=== PATIENT | female | born 1980 | race Caucasian/White ===

== ENCOUNTER 2018-09-18 12:12 | Inpatient (IN) | payer MEDICAID ==
[2018-09-18] VITALS (16 sets, daily range): BP systolic 87–114; BP diastolic 44–84; BMI 33.7
[~2018-09-18] VITALS: Ht 175.3 cm; Wt 117.7 kg
[2018-09-18] MEDS ORDERED: ROBAXIN500 MG PO (12:28)
[2018-09-18] MEDS ORDERED: CYCLOBENZAPRINE10 MG PO (12:29)
[2018-09-18 13:19] LABS: HCG SERUM NEGATIVE (NEGATIVE)
[2018-09-18 13:40] LABS: BASOPHILS 0.1 % (0-2); EOSINOPHILS 0.3 % (0-7); HEMATOCRIT 43.2 % (36.0-48.0); HEMOGLOBIN 14.6 g/dL (12-16); LYMPHOCYTES 3.2 % (15-50); MCH 31.5 pg (26.0-34.0); MCHC 33.8 g/dL (31.0-37.0); MCV 93.1 fL (80.0-100.0); MEAN PLATELET VOLUME 11.1 fL (7.4-10.4); MONOCYTES 0.1 % (2-11); NEUTROPHILS 91.3 % (40-80); PLATELET COUNT 85 10x3/uL (130-400); RBC 4.64 10x6/uL (4.00-5.40); RDW 12.6 % (11.5-14.5); WBC 10.3 10x3/uL (4.8-10.8)
[2018-09-18 14:05] LABS: ALBUMIN 2.9 g/dL (3.4-5.0); ALKALINE PHOSPHATASE 118 U/L (46-116); ALT (SGPT) 50 U/L (10-68); BILIRUBIN - TOTAL 3.05 mg/dL (0.2-1.3); CALC OSMOLALITY 278 mosm/kg (275-300); CALCIUM 7.8 mg/dL (8.5-10.1); CARBON DIOXIDE 19.4 mmol/L (21.0-32.0); CHLORIDE - SERUM 104 mmol/L (98-107); CREATININE - SERUM 1.6 mg/dL (0.6-1.3); GLUCOSE 90 mg/dL (74-106); POTASSIUM - SERUM 3.1 mmol/L (3.5-5.1); PROTEIN - SERUM 5.7 g/dL (6.4-8.2); SODIUM 138 mmol/L (136-145); UREA NITROGEN 22 mg/dL (7-18); eGFR NON AFRICAN AMERICAN 38 mL/min (90-120)
[2018-09-18 14:08] LABS: AMYLASE - SERUM 26 U/L (25-115); LIPASE 128 U/L (73-393); TROPONIN-I < 0.017 ng/mL (0.000-0.060)
[2018-09-18 14:15] LABS: APPEARANCE SL CLDY (CLEAR); BILIRUBIN 1+ (NEGATIVE); COLOR DK YELLOW (YELLOW); GLUCOSE NEGATIVE (NEGATIVE); KETONE NEGATIVE (NEGATIVE); NITRITE NEGATIVE (NEGATIVE); PROTEIN 1+ mg/dL (NEGATIVE); SPECIFIC GRAVITY 1.015 (1.005-1.020)
[2018-09-18 14:16] LABS: BACTERIA MODERATE /hpf (NONE SEEN); EPITHELIAL CELLS 0-5 /hpf (0-5); GRANULAR CAST OCC /lpf (NONE SEEN); HYALINE CAST OCC /lpf (NONE SEEN); RED CELLS - URINE OCC /hpf (0-5)
[2018-09-18 14:20] LABS: PLATELET ESTIMATE DECREASED
[2018-09-18 14:21] LABS: ROULEAUX OCC
--- NOTE | 2018-09-18 14:30 | NUR ---
NS 2000 mL INFUSION COMPLETED AT THIS TIME.
[2018-09-18 17:11] LABS: MAGNESIUM - SERUM 1.1 mg/dL (1.8-2.4)
[2018-09-18 17:21] LABS: PHOSPHOROUS 1.5 mg/dL (2.5-4.9)
--- NOTE | 2018-09-18 18:55 | NUR ---
16 FR INDWELLING PHILLIPS CATH PLACED, APPROX 50 ML URINE OUTPUT.
--- NOTE | 2018-09-18 19:00 | NUR ---
LEVAQUIN INFUSION COMPLETED AT 171. NORMAL SALINE BOLUS 1 L COMPLETED AT 164. DOPAMINE INFUSION AT 12.5 MCG/KG/MIN CONTINUING TO INFUSE TO FLOOR AT 191. NS WITH 20mEq K CONTINUING TO INFUSE TO FLOOR AT RATE OF 125ML/H.
--- NOTE | 2018-09-18 20:56 | NUR ---
PT ON NS W/20K DRIP AT 125ML/HR AND LEVOPHED AT 10MCG/MIN.
--- NOTE | 2018-09-18 21:10 | NUR ---
Patient arrived on unit 191, connected to monitor. Dr Hankins at bedside, orders to Pre-Op patient immediately. Consents signed, pre-op meds given and patient off unit to [facility] 1924. Patient returned to 2313 @ 2110, connected to monitor and assessment completed per flowsheet. Patient AO x4, calm and cooperative. S1/S2 noted Sinus Tach on telemetry with HR 108, rythmic and regular. Breathing is even/unlabored on 2L via NC with O2 sat 96%, lung sounds clear bilateral upper and mid with diminished lower. Abdomen is round/soft with bowel sounds active x4, non-tender. Menchaca placed in surgery, orange urine noted. All pulses palpable wtih cap refill < 3 sec, skin warm/dry. Patient c/o pain/discomfort 2/10 back and flank, repositioned for comfort and will provide PRN medication when available. Denies further needs at this time, see flwstevet for details. All VSS and will continue to monitor.
--- NOTE | 2018-09-18 23:10 | NUR ---
Reassessment completed per flowsheet, patient resting in bed with eyes closed. S1/S2 noted Sinus Tach on telemetry with HR 112, rythmic and regular. Breathing is even/unlabored on 2L via NC with O2 sat 97%, lung sounds clear bilateral upper and mid with diminished lower. Menchaca secured, orange clear urine noted. All pulses palpable with cap refill < 3 sec, skin warm/dry. C/O back/flank pain 3/10, repositioned with some stated relief. Denies further needs, see flowsheet for details. All VSS and will continue to monitor.
[2018-09-19] VITALS (142 sets, daily range): BP systolic 60–146; BP diastolic 32–87; Ht 175.3 cm; Wt 117.7 kg
--- NOTE | 2018-09-19 00:10 | NUR ---
Patient c/o back/flank pain 8/10 unrelieved by repositioning, COMPOUND COATING MACHINE OFFBEARER initiated per orders. Explained use with patient returned demonstration, will continue to monitor.
--- NOTE | 2018-09-19 01:00 | NUR ---
Patient resting in bed with eyes closed, occaisional moans of pain/discomfort. Patient utilizing CENTRAL SERVICE TECHNICIAN for pain mgmt, denies further needs at this time and will continue to monitor.
--- NOTE | 2018-09-19 02:54 | NUR ---
Reassessment completed per flowsheet, no changes noted from previous assessment. S1/S2 noted Sinus Tach on telemetry with HR 114, rythmic and regular. Breathing is even/unlabored on 2L via NC with O2 sat 97%, lung sounds clear bilateral upper and mid with diminished lower. All pulses palpable with cap refill < 3 sec, skin warm/dry. Menchaca secured, clear orange urine noted. SUSTAINABLE LANDSCAPE ARCHITECT in use for pain mgmt, denies further needs at this time. See flowsheet for details, all VSS and will continue to monitor.
--- NOTE | 2018-09-19 05:00 | NUR ---
Patient sleeping in bed with eyes closed, awakens easily to voice. Denies pain or other needs at this time, all VSS and will continue to monitor.
[2018-09-19 05:17] LABS: HEMATOCRIT 37.6 % (36.0-48.0); HEMOGLOBIN 12.6 g/dL (12-16); MCH 31.5 pg (26.0-34.0); MCHC 33.5 g/dL (31.0-37.0); MEAN PLATELET VOLUME 11.7 fL (7.4-10.4); PLATELET COUNT 105 10x3/uL (130-400); RDW 13.1 % (11.5-14.5); WBC 49.1 10x3/uL (4.8-10.8)
[2018-09-19 05:29] LABS: ALBUMIN 2.2 g/dL (3.4-5.0); BILIRUBIN - TOTAL 3.53 mg/dL (0.2-1.3); CARBON DIOXIDE 20.7 mmol/L (21.0-32.0); CREATININE - SERUM 1.5 mg/dL (0.6-1.3); PROTEIN - SERUM 4.8 g/dL (6.4-8.2)
--- NOTE | 2018-09-19 05:37 | OP ---
PATIENT NAME: JESSICA OWENS MEDICAL RECORD: [id number] :78 LOCATION:[facility] D.2313 ADMISSION DATE:09/18/18 SURGEON: REJI NGO MD DATE OF OPERATION: 09/18/2018 SURGEON: Reji Ngo MD ANESTHESIA: General anesthesia by Bronson Evans CRNA. DIAGNOSES: Left ascending pyelonephritis with bacteremia and septic shock. 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 PROCEDURES: Cystoscopy, left retrograde pyelogram, left ureteral stent insertion 6-Liberian x 24 cm with string attached. FINDINGS: Persistent right nephrogram due to renal failure. Grossly hydronephrotic left renal pelvis, possibly due to a left UPJ obstruction. BLOOD LOSS: None. CLINICAL HISTORY: This is a 38-year-old female, who developed symptoms of left flank pain 1 week ago. Eventually, she developed nausea, vomiting, fevers, chills and rigors and she came to the Emergency Room today. The CT scan shows no evidence of kidney stones. She has a very massively distended left renal pelvis which the radiologist interpreted as a left parapelvic cyst. There are signs of left pyelonephritis as the CT done with IV contrast that showed less enhancement of the left kidney. There is also a lot of perinephric inflammation. Clinically, she has septic shock and lactic acidosis. She has her blood pressure maintained with a dopamine drip. She comes now to have the left kidney drained by insertion of a left ureteral stent. Also, I would like to further delineate the anatomy with the left retrograde pyelogram. Finally, if there is a cyst present then once she is more stable, I will have interventional radiology drain the cyst. She has been given Levaquin IV 750 mg in the Emergency Room. We did not give her any further antibiotics. She has a creatinine of 1.6 and lactic acid level of 3.8. DESCRIPTION OF PROCEDURE: The patient was given induction of general anesthesia. She was then placed into dorsal lithotomy position. I discussed the situation with my anesthesia colleagues. We will switch her vasopressin have agent to the Levophed instead of dopamine. Levophed is the first-line agent for acute septic shock. Also, I have asked them to insert a central line for better CVP monitoring. From a urological viewpoint, we placed her in lithotomy position and prepped and draped. The Menchaca catheter that the ER had placed was removed. Cystoscopy was done with a 21-Liberian cystoscope. A 30-degree lens was used. She has no bladder tumors. There is diffuse bladder inflammation from cystitis. She has single ureteral orifices on each side. The left ureteral orifice was seen. On fluoroscopy, we could see a persistent right renal nephrogram with a column of dye all the way down the ureter. I suspect that this is due to her acute renal failure, which is preventing efflux of contrast from the right kidney as there is minimal urine production from the right kidney right now. On the left side, I did not see any contrast at all. We entered the left ureteral orifice with an open-ended 5-Liberian ureteral catheter. Diluted contrast was injected. There seems to be kink of the ureter at the UP junction. Then, there was a massively distended hydronephrotic left renal pelvis. I advanced the open-ended ureteral catheter to get past the UPJ OPERATIVE REPORT [id number] JESSICA OWENS into the renal pelvis. This allowed the ureter to straighten out. We then inserted a Sensor wire into the renal pelvis. Once the wire was in position, the ureteral catheter was removed entirely. Over the wire, we inserted the 6-Liberian x 24 cm ureteral stent. Once this ureteral stent was in correct position, the wire was withdrawn entirely. The distal end of the stent was pushed into the bladder using a pusher. The bladder was then emptied through the cystoscope sheath and the sheath was removed. The string on the distal end of the stent is maintained. It was taped to the suprapubic area with a piece of Tegaderm. The excess length of string thereafter was cut off. Also, we inserted a 16-Liberian Menchaca catheter back into the bladder. TRANSINT:[id number] Voice Confirmation ID: [id number] DOCUMENT ID: [id number] REJI NGO MD at 0537 CC: [id number] DICTATION DATE: 09/18/182041 PAYMENT SPECIALIST: 09/18/18 2331 ADM IN [facility] [address] [place] [address]
[2018-09-19 05:38] LABS: ANION GAP 15.6 mmol/L (8-16); CALCIUM 6.4 mg/dL (8.5-10.1); POTASSIUM - SERUM 5.3 mmol/L (3.5-5.1)
[2018-09-19 05:41] LABS: BASOPHILS 1 % (0-2); LYMPHOCYTES 1 % (15-50); MONOCYTES 3 % (2-11); NEUTROPHILS 71 % (40-80)
[2018-09-19 05:42] LABS: PLATELET ESTIMATE NORMAL; PLATELET MORPHOLOGY GIANT PLTS PRESENT
--- NOTE | 2018-09-19 06:05 | NUR ---
Patient c/o L flank pain, soft to palpation/no bruising noted. Patient UOP noted to be bloody, repositioned with stated relief. Will continue to monitor.
--- NOTE | 2018-09-19 08:00 | NUR ---
DR HUBER WANG
--- NOTE | 2018-09-19 08:18 | NUR ---
DR JIN PAGED R/T DR NGO WITH NO ANSWER
--- NOTE | 2018-09-19 08:35 | NUR ---
DR JIN NO ANSWER
--- NOTE | 2018-09-19 08:50 | NUR ---
DR NGO PAGED WITH NO ANSWER
--- NOTE | 2018-09-19 09:21 | NUR ---
DR JIN AT BEDSIDE. GIVEN UPDATE. NEW ORDERS RECIEVED.
--- NOTE | 2018-09-19 10:20 | NUR ---
DR DUNN AT BEDSIDE NEW ORDERS RECEIVED.
--- NOTE | 2018-09-19 10:58 | NUR ---
DR DUNN AT BEDSIDE. UPDATE GIVEN. NEW ORDERS RECIEVED.
--- NOTE | 2018-09-19 11:15 | NUR ---
REASSESSMENT COMPLETE PER FLOW SHEET VSS NO NEW CHANGES WILL CONTINUE TO MONITOR
--- NOTE | 2018-09-19 13:15 | NUR ---
PRN ZOFRAN ADM FOR NAUSEA
--- NOTE | 2018-09-19 13:20 | NUR ---
DR MONA WANG
--- NOTE | 2018-09-19 13:40 | NUR ---
DR DUNN PAGED AGAIN. CALLED BACK NEW ORDERS RECEIVED
--- NOTE | 2018-09-19 13:50 | NUR ---
DR YUAN PAGED GIVEN UPDATE. STATED WOULD BE HERE IN FIVE MINUTES
[2018-09-19 14:45] LABS: BASOPHILS 0 % (0-2); EOSINOPHILS 0 % (0-7); HEMOGLOBIN 7.8 g/dL (12-16); IMMATURE GRANULOCYTES 8.8 % (0-5); LYMPHOCYTES 2.3 % (15-50); MCH 31.5 pg (26.0-34.0); MCHC 32.5 g/dL (31.0-37.0); MCV 96.8 fL (80.0-100.0); MONOCYTES 4.7 % (2-11); NEUTROPHILS 84.2 % (40-80); PLATELET COUNT 101 10x3/uL (130-400); RBC 2.48 10x6/uL (4.00-5.40); RDW 13.4 % (11.5-14.5)
[2018-09-19 14:48] LABS: WBC 51.8 10x3/uL (4.8-10.8)
[2018-09-19 15:00] LABS: BILIRUBIN - TOTAL 3.3 mg/dL (0.2-1.3); CARBON DIOXIDE 15.6 mmol/L (21.0-32.0); PROTEIN - SERUM 3.9 g/dL (6.4-8.2)
[2018-09-19 15:01] LABS: ALBUMIN 1.6 g/dL (3.4-5.0); ANION GAP 20.7 mmol/L (8-16); CREATININE - SERUM 2.7 mg/dL (0.6-1.3)
[2018-09-19 15:02] LABS: POTASSIUM - SERUM 6.3 mmol/L (3.5-5.1)
[2018-09-19 15:03] LABS: CALCIUM 5.6 mg/dL (8.5-10.1)
--- NOTE | 2018-09-19 15:45 | NUR ---
PT TO CT AT THIS TIME. AWAITING RESULTS.
--- NOTE | 2018-09-19 16:00 | NUR ---
DR YUAN PAGED GIVEN UDPATE. CALLING RADIOLOGY
--- NOTE | 2018-09-19 16:05 | NUR ---
DR DUNN CALLED GIVEN UPDATE. T ORDERS RECEIVED. WILL ADM.
--- NOTE | 2018-09-19 16:29 | NUR ---
3RD U PRBC ADM
--- NOTE | 2018-09-19 16:31 | NUR ---
1ST UNIT PLATELETS ADM
--- NOTE | 2018-09-19 16:36 | NUR ---
2ND U PRBC WILL ADM
--- NOTE | 2018-09-19 17:01 | NUR ---
1ST UNIT FFP ADM
--- NOTE | 2018-09-19 17:15 | MORECARE ---
CASE MANAGEMENT DISCHARGE SUMMARY PATIENT: JESISCA OWENS UNIT: [id number] ADM DATE: 09/18/18 AGE: 38 : [birth year] SEX: F ROOM/BED: D.2313 AUTHOR: MIGUEL ELENA PHYSICIAN: REFERRING PHYSICIAN: ADEBAYO JIN DO DATE OF SERVICE: 09/19/18 Discharge Plan Patient Name: JESSICA OWENS [facility] [facility] 1980 Planned Disposition: Anticipated Discharge Date: Discharge Date: Expected LOS: Initial Reviewer: [email or web address] Initial Review Date: 09/18/2018 Generated: 09/19/18 6:14 pm Comments DCP- Discharge Planning Updated by [email or web address]: Lana Andujar on 09/19/18 4:[address] Patient is very critical at this time awaiting surgery. No immediate family here. CM will try at a later date to get D/C plan. Patient Name: JESSICA OWENS Page [phone] at 1715 All edits/amendments must be made on the electronic document DICTATION DATE: 09/19/181713 REFINERY OPERATOR: SUNIL 09/19/181713 RPT#: [id number] DC DATE: STATUS: ADM IN [facility] [address] [place] [address] END OF REPORT
--- NOTE | 2018-09-19 17:20 | NUR ---
4TH U PRBC 2ND U PLATELETS ADM
--- NOTE | 2018-09-19 17:30 | NUR ---
DR MARLEEN DUNN AT BEDSIDE GIVEN UDPATE. FAMILY AT BEDSIDE GIVEN UDPATE. CONSENTS OBTAINED
--- NOTE | 2018-09-19 18:06 | NUR ---
UNABLE TO OBTAIN I/O OR SILK TOP HAT BODY MAKER FLOW SHEET I/O. PT TO OR EMERGENTLY
--- NOTE | 2018-09-19 18:57 | NUR ---
OR CALLED STATED PT WOULD BE IN RECOVERY IN 10 MINUTES
--- NOTE | 2018-09-19 19:23 | NUR ---
PT ARRIVED TO UNIT WITH OR STAFF. LATHE SCALPER OPERATOR GIVING BEDSIDE REPORT. PT IS INTUBATED AND SEDATED AT THIS TIME. PERRLA, 3 MM, BRISK REACTION TO LIGHT. NGT R POLY FLORES PER DR. WEST'S VERBAL ORDER AT BEDSIDE. ETT SIZE 7.0, 20 CM MIDLINE. VENT SETTINGS: A/C RATE OF 14, TIDAL VOLUME 500, FIO2 @ 100%, PEEP 5.0, O2 SAT 98%. R IJ CVL INFUSING LEVOPHED @ 11 MCG/MIN (20.6 ML/HR), VASOPRESSIN 0.04 UN/MIN (6 ML/HR), LR @ KVO, DILAUDID CASE HARDENER @ 0.2 MG Q10 MIN WITH MAX 4 MG/4H, BUTTON WITHIN REACH. S1S2 AUDIBLE, HR 97 NSR SHOWING ON MONITOR. CLEAR LUNG SOUNDS HEARD BILAT THROUGHOUT ALL LOBES. ABD ROUND, MIDLINE ABD INCISION DRESSING CDI. LLQ EUGENE DRAIN, COMPRESSED, BLOODY DRAINAGE NOTED. PHILLIPS CATH INTACT DRAINING CONCENTRATED URINE. L RADIAL A-LINE ZEROED, BP 123/62, CVP READING 4. VERBAL ORDER VIA ANESTHESIA TO HANG PROPOFOL IN 1-2 HRS BASED OFF OF FELIPE'S SEDATION SCORE. VERBAL ORDER FROM DR. WEST TO KEEP CVP > 6 WITH LR FLUID BOLUS. WILL CONT TO MONITOR CLOSELY. ALL NEEDS MET.
--- NOTE | 2018-09-19 20:40 | NUR ---
DR. WEST AT [facility]. VASOPRESSIN MAXED AT 0.04 UN/MIN (6ML/HR). DR. WEST STATED TO TURN VASOPRESSIN OFF AND TITRATE UP ON LEVO IF NEEDED. VASO TURNED OFF PER ORDER.
--- NOTE | 2018-09-19 20:43 | NUR ---
RT DECREASED FIO2 TO 60%.
--- NOTE | 2018-09-19 20:50 | NUR ---
UPDATED DR. DUNN ON PT'S CONDITION. NEW ORDERS RECIEVED.
--- NOTE | 2018-09-19 21:00 | NUR ---
DR. NGO AT BEDSIDE SPEAKING WITH FAMILY ABOUT PT CONDITION. ALL QUESTIONS ANSWERED. WILL PROVIDE EDUCATIONAL AND EMOTIONAL SUPPORT TO FAMILY.
--- NOTE | 2018-09-19 21:20 | NUR ---
PT'S CHILDREN AT BEDSIDE. ALL QUESTIONS ANSWERED. NO FURTHER NEEDS AT THIS TIME.
[2018-09-19 22:46] LABS: HEMATOCRIT 22.7 % (36.0-48.0); HEMOGLOBIN 8.1 g/dL (12-16)
--- NOTE | 2018-09-19 23:18 | OP ---
PATIENT NAME: JESSICA OWENS MEDICAL RECORD: [id number] :78 LOCATION:[facility] D.2313 ADMISSION DATE:09/18/18 SURGEON: JOHN NGO MD DATE OF OPERATION: 09/19/2018 CO-SURGEON: John Ngo MD and Dakota Velazco MD (JJ) PREOPERATIVE DIAGNOSIS: Stage V left renal rupture, level 4 hemorrhagic shock. PROCEDURE: Exploratory laparotomy, left nephrectomy. FINDINGS: Ruptured atrophic left kidney with a large hematoma within Gerota's fascia and retroperitoneal hemorrhage. SPECIMENS: 1. Left kidney. 2. Left ureteral stent. ESTIMATED BLOOD LOSS: Minimal from the surgery, but the patient already had large amounts of blood in the hematoma. CLINICAL HISTORY: This is a 38-year-old female, who has had 1-week history of left flank pain. She eventually developed fevers, chills and rigors and yesterday she came to the Emergency Room. She eventually developed septic shock with hypotension. She was placed on IV dopamine. A CT scan showed an abnormal looking left kidney with what looks like a large left parapelvic cyst or possible UPJ obstruction and signs of left pyelonephritis. Since she was apparently septic and bacteremic, I brought her to the operating room last night to insert a left ureteral stent. She had a left retrograde pyelogram at the same time, which showed a UPJ type obstruction with a grossly hydronephrotic left kidney. Today, she deteriorated even worse. Her hemoglobin has dropped precipitously, hemoglobin of 5.8 and she was transfused 2 units of blood. She had a CT angiogram of the abdomen and pelvis and this showed a large left hematoma within Gerota's fascia. Interventional radiology felt they could not embolize this kidney. Therefore, I received rather frantic calls from the ICU attending physicians regarding a left nephrectomy. On reviewing the situation, it is apparent to me that she will from bleeding if we do not do anything. Even if we do perform a left nephrectomy to stop the bleeding, there is still a risk that she could from the surgery or in spite of the surgery. However, surgery offers only chance of potentially rescuing her. In discussing this with the patient and her family, they decided to proceed with a left nephrectomy. I have asked Dr. Velazco to help me with this procedure as I will need his experience with the vascular surgery. She is already on multiple IV antibiotics in the ICU. No further antibiotics were given to her. DESCRIPTION OF PROCEDURE: The patient was given induction of general anesthesia in supine position. She was then prepped and draped. A midline incision extending from the xiphoid process, all the way down to the symphysis pubis was made when we entered through the midline into the peritoneal space. A Bookwalter retractor was placed to hold the incision open. We discovered a large quantity of hemorrhage around the left upper quadrant. There was also blood in the pelvis. This was suctioned out. We started mobilization of the left lateral peritoneum along the line of Toldt. The colon could then be mobilized medially. The ligaments between the colon and spleen were also taken down using Bovie. This allowed us to see the anterior surface of the kidney. OPERATIVE REPORT [id number] JESSICA OWENS We continued to mobilize the colon medially until we had the entire anterior surface of the kidney exposed. We swept around posterior to the kidney and cleaned out a large hematoma here. Sponges were placed here for hemostasis. We then swept around the inferior pole of the kidney until we identified the ureter with my stents in it. A small opening was made in the ureter. The stent was entirely removed through this opening. Clips were applied proximal and distal to this opening and the ureter was divided at this site. Going medially, I identified the plane of the renal pedicle. An endovascular STEVAN 45 with a vascular load was used to cut through the renal pedicle. We continued to use the endovascular STEVAN 45 loads with vascular rubén to go through the adrenal gland at the superior pole of the kidney. Finally, the plane between the spleen and the kidney was entered through using Endo-STEVAN stapler. Finally, the entire kidney was free and it was removed. Grossly, it seems to have ruptured and bled profusely. No active bleeding is seen. We removed all the clots manually and removed all our sponges that we have placed in previously. At this point, Dr. Velazco ran the bowel. There was no injury to the bowel. However, there was a rent in the mesentery where there had been a hemorrhage in the mesentery near the proximal small bowel. This rent in the mesentery was closed to prevent internal herniation. A 3-0 Vicryl running sutures were used to close the hole in the mesentery. There was no injury to the bowel at all. An NG tube was inserted by anesthesia and we confirmed its location by palpating the gastric fundus. Then, we closed using running looped #1 PDS. The skin was closed with rubén. A Bronson drain was placed into the left upper quadrant at the renal fossa for security. This was tied down with a 2-0 nylon drain suture. The patient will be transferred back to the intensive care unit. TRANSINT:[id number] Voice Confirmation ID: [id number] DOCUMENT ID: [id number] JOHN NGO MD at 2318 CC: [id number] DICTATION DATE: 09/19/181923 LOCK ASSEMBLER: 09/19/182149 ADM IN [place] [id number] [place] [id number]
--- NOTE | 2018-09-19 23:42 | NUR ---
HR 150'S BP DECREASING. PAGING DR. WEST.
--- NOTE | 2018-09-19 23:48 | NUR ---
NEW ORDERS RECIEVED PER DR. WEST.
--- NOTE | 2018-09-19 23:55 | NUR ---
RT DECREASED O2 TO 40%, PT TOLERATING WELL.
[2018-09-20] VITALS (88 sets, daily range): BP systolic 79–147; BP diastolic 38–90
--- NOTE | 2018-09-20 00:03 | NUR ---
1 UN PRBC INFUSING.
--- NOTE | 2018-09-20 00:03 | NUR ---
FIRST UN PRBC INITIATING.
--- NOTE | 2018-09-20 00:32 | NUR ---
2ND UN PRBC INFUSING.
--- NOTE | 2018-09-20 01:00 | NUR ---
PT'S SBP IMPROVING WITH BLOOD PRODUCTS. WILL CONT TO TITRATE GTTS PER ORDERS.
[2018-09-20 02:16] LABS: HEMOGLOBIN 8.3 g/dL (12-16)
--- NOTE | 2018-09-20 03:00 | NUR ---
REASSESSMENT COMPLETE PER FLOWSHEET. PT IS ABLE TO LOCALIZE PAIN. CLEAR SECTIONS NOTED IN ETT WHEN SUCTIONING. SEE FLOWSHEET FOR FURTHER DETIALS. ALL NEEDS MET. WILL CONT CLOSE OBSERVATION AT BEDSIDE.
--- NOTE | 2018-09-20 04:00 | NUR ---
ACCOUNTING FOR LAST SHIFT'S CREATIVE SERVICES WRITER DOSE. UNABLE TO CLEAR PUMP DUE TO EMERGENT SX. SEE CREATIVE SERVICES WRITER FLOWSHEET FOR FURTHER DETIALS.
--- NOTE | 2018-09-20 04:08 | NUR ---
3RD UN PRBC INFUSING.
--- NOTE | 2018-09-20 04:10 | NUR ---
1 UN FFP INFUSING.
[2018-09-20 04:38] LABS: HEMATOCRIT 20.9 % (36.0-48.0); MCHC 35.4 g/dL (31.0-37.0); MCV 84.6 fL (80.0-100.0); RBC 2.47 10x6/uL (4.00-5.40); RDW 14.8 % (11.5-14.5); WBC 25.8 10x3/uL (4.8-10.8)
[2018-09-20 04:39] LABS: BASOPHILS 0 % (0-2); EOSINOPHILS 0 % (0-7); HEMOGLOBIN 7.4 g/dL (12-16); IMMATURE GRANULOCYTES 2.2 % (0-5); LYMPHOCYTES 3.8 % (15-50); MEAN PLATELET VOLUME 11.6 fL (7.4-10.4); PLATELET COUNT 54 10x3/uL (130-400)
[2018-09-20 04:48] LABS: ALBUMIN 1.2 g/dL (3.4-5.0); BILIRUBIN - TOTAL 8.07 mg/dL (0.2-1.3)
[2018-09-20 04:57] LABS: ANION GAP 11.4 mmol/L (8-16); CALCIUM 5.6 mg/dL (8.5-10.1); CARBON DIOXIDE 26.9 mmol/L (21.0-32.0); CREATININE - SERUM 1.8 mg/dL (0.6-1.3); POTASSIUM - SERUM 4.3 mmol/L (3.5-5.1)
--- NOTE | 2018-09-20 05:17 | NUR ---
EUGENE DRAIN HAS LARGE CLOT IN CHAMBER. ONLY ABLE TO REMOVE 20-30 ML BLOOD EACH TIME. WILL LET SURGICAL TEAM KNOW.
[2018-09-20 05:31] LABS: PLATELET ESTIMATE DECREASED
--- NOTE | 2018-09-20 07:00 | NUR ---
REPORT RECEIVED. ASSESSMENT COMPLETE PER FLOW SHEET. REFER FOR FINDINDGS. VSS WILL CONTINUE TO MONITOR NURSE AT [facility]
--- NOTE | 2018-09-20 07:08 | NUR ---
CALLED PHARMACY 3 TIMES TO GET PERIDEX FOR PT
--- NOTE | 2018-09-20 07:10 | NUR ---
CALLED PHARMACY 3 TIMES TO GET PERIDEX NO ANSWER
[2018-09-20 07:52] LABS: HEMATOCRIT 20.2 % (36.0-48.0)
--- NOTE | 2018-09-20 08:03 | NUR ---
DR YUAN AT BEDSIDE. GIVEN UDPATE. NO NEW ORDERS
--- NOTE | 2018-09-20 08:15 | NUR ---
LAB CALLED GIVEN UPDATE ON SEVERETY OF H&H RESULTS BEING RESULTED STATED UNDERSTANDING WOULD REVIEW NOW.
[2018-09-20 08:18] LABS: HEMOGLOBIN 7.2 g/dL (12-16)
--- NOTE | 2018-09-20 09:02 | NUR ---
DR JIN AT BEDSIDE GIVEN UPDATE.
--- NOTE | 2018-09-20 09:20 | NUR ---
NAPOLEON LEE WITH CRISTIAN AT BEDSIDE GIVEN UDPATE.
[2018-09-20 09:36] LABS: INR 1.51 (0.85-1.17); PROTIME 17.6 SECONDS (11.6-15.0)
--- NOTE | 2018-09-20 09:41 | NUR ---
DR WEST AT BEDSIDE GIVEN UDPATE. NEW ORDERS RECEIVED.
--- NOTE | 2018-09-20 11:00 | NUR ---
REASSESSMENT COMPLETE PER FLOW SHEET. VSS. NO NEW CHANGES PT RESTING COMFORTABLY WILL CONTINUE TO MONITOR
--- NOTE | 2018-09-20 11:05 | OP ---
PATIENT NAME: JESSICA OWENS MEDICAL RECORD: [id number] :78 LOCATION:[facility] D.2313 ADMISSION DATE:09/18/18 SURGEON: COLT WEST MD DATE OF OPERATION: 09/19/2018 PREOPERATIVE DIAGNOSES: Grade V left kidney injury with class IV hemorrhagic shock and active bleeding, pyelonephritis, sepsis. POSTOPERATIVE DIAGNOSES: Grade V left kidney injury with class IV hemorrhagic shock and active bleeding, pyelonephritis, sepsis. PROCEDURE PERFORMED: Laparotomy, left nephrectomy, control of intra-abdominal hemorrhage, washout of intra-abdominal hematoma, mobilization of splenic flexure. SURGEON: Colt West MD CO-SURGEON: Reji Hankins MD ESTIMATED BLOOD LOSS: 3 liters. SPECIMENS: Left kidney and ureter. Case was clean. ANESTHESIA: General. COMPLICATIONS: None. OPERATIVE COURSE: The patient was taken emergently from the intensive care unit to the operating room table. General anesthesia was given. Timeout was taken to confirm the correct patient and procedure. The abdomen was prepped and draped in typical sterile fashion. Ioban dressing was placed. A generous midline incision was made from the xiphoid process to just below the umbilicus with a 10-blade scalpel. Dissection continued to the subcutaneous tissue with electrocautery. The anterior fascia was identified. The fascia was incised with electrocautery. The peritoneum was grasped with Argenis clamps and incised with Metzenbaum scissors. Remaining portion of the incision and peritoneum were opened with electrocautery under direct vision. The Bookwalter retractors were placed into the abdomen, exposing the abdominal cavity. All 4 quadrants of the abdomen were packed. The packs were removed in counterclockwise fashion from the left lower quadrant to the right lower quadrant, right upper quadrant, and then finally to the left upper quadrant. The descending colon and sigmoid colon were dissected off the pelvic sidewall. The white line of Toldt was taken down using electrocautery. Careful dissection was made to identify the plane between the mesentery and the retroperitoneum. Once this is done, the mesentery of the descending colon was mobilized medially. We mobilized the splenic flexure. The transverse colon was also mobilized using Harmonic scalpel dissection of the greater omentum the greater omentum into the lesser sac. Once we had full mobilization of the transverse colon, splenic flexure, and descending colon, we were able to identify the ureter by palpation of the ureteral sent. The ureter was transected. Multiple clips were placed on the distal ureter. The avascular attachments of the spleen were mobilized. Two-three liters of intra-abdominal hematoma were removed from the left retroperitoneal space. The vascular pedicle was identified using 3 firings of the linear cutting STEVAN OPERATIVE REPORT [id number] JESSICA OWENS stapler with white loads. The vascular pedicle to the left kidney was transected. The left kidney was passed off this field and sent for permanent pathology. The abdomen was then irrigated with 5 liters of warm normal saline. Adequate hemostasis was obtained. A 19-Luxembourgish Bronson drain was placed into the left lower quadrant and placed into the right retroperitoneal space. At this time, instrument, lap counts were performed. All lap pads were identified. At this time, the abdomen was evaluated. There was no evidence of active bleeding. Dr. Hankins was present and helped to perform all portions of the operation including the nephrectomy. The midline abdominal incision was closed with #1 looped PDS. Skin was closed with rubén. EUGENE drain was secured with 2-0 nylon suture. At the end of the case, all needle and instrument counts were correct. No complications occurred. The patient was transferred back to the intensive care unit in critical condition. TRANSINT:[id number] Voice Confirmation ID: [id number] DOCUMENT ID: [id number] COLT WEST MD at 1105 CC: [id number] DICTATION DATE: 09/20/18917 SAP PI ARCHITECT: 09/20/18 1027 [place] [address]
--- NOTE | 2018-09-20 13:12 | NUR ---
DR NGO AT BEDSIDE GIVEN UDPATE.
[2018-09-20 14:03] LABS: BASOPHILS 0.1 % (0-2); EOSINOPHILS 0 % (0-7); HEMATOCRIT 23.4 % (36.0-48.0); HEMOGLOBIN 8.3 g/dL (12-16); IMMATURE GRANULOCYTES 0.6 % (0-5); MCH 30.1 pg (26.0-34.0); MCHC 35.5 g/dL (31.0-37.0); MCV 84.8 fL (80.0-100.0); MEAN PLATELET VOLUME 9.7 fL (7.4-10.4); MONOCYTES 5.6 % (2-11); NEUTROPHILS 89.7 % (40-80); RBC 2.76 10x6/uL (4.00-5.40); RDW 14.9 % (11.5-14.5)
[2018-09-20 14:19] LABS: APTT 26.5 SECONDS (22.8-39.4); INR 1.24 (0.85-1.17); PROTIME 15.1 SECONDS (11.6-15.0)
[2018-09-20 14:21] LABS: ANION GAP 10.9 mmol/L (8-16); BILIRUBIN - TOTAL 4.92 mg/dL (0.2-1.3); CARBON DIOXIDE 30.8 mmol/L (21.0-32.0); CREATININE - SERUM 1.5 mg/dL (0.6-1.3); POTASSIUM - SERUM 3.7 mmol/L (3.5-5.1)
[2018-09-20 14:22] LABS: PROTEIN - SERUM 4.4 g/dL (6.4-8.2)
[2018-09-20 14:23] LABS: CALCIUM 6.5 mg/dL (8.5-10.1)
--- NOTE | 2018-09-20 14:25 | NUR ---
DR YUAN CALLED GIVEN UDPATE REGUARDING CRITICAL CA+ LVL
[2018-09-20 14:46] LABS: WBC 17.5 10x3/uL (4.8-10.8)
[2018-09-20 14:47] LABS: PLATELET COUNT 66 10x3/uL (130-400)
--- NOTE | 2018-09-20 14:55 | NUR ---
LABS REVIEWED. DR WEST PAGED TO EULALIO RESULTS
--- NOTE | 2018-09-20 15:00 | NUR ---
REASSESSMENT COMPLETE PER FLOW SHEET. VSS. NO NEW CHANGES WILL CONTINUE TO MONITOR
--- NOTE | 2018-09-20 15:15 | NUR ---
DR WEST AT BEDSIDE GIVEN UPDATE NEW ORDERS RECEIVED
--- NOTE | 2018-09-20 16:18 | NUR ---
DR DUNN AT BEDSIDE GIVEN UDPATE
--- NOTE | 2018-09-20 17:05 | NUR ---
DR JIN AT BEDSIDE GIVEN UPDATE.
--- NOTE | 2018-09-20 17:57 | NUR ---
STAT H&H DRAWN SENT TO LAB. AWAITING RESULTS
[2018-09-20 18:06] LABS: HEMATOCRIT 24.3 % (36.0-48.0); HEMOGLOBIN 8.6 g/dL (12-16)
--- NOTE | 2018-09-20 19:00 | NUR ---
SHIFT ASSESSMENT COMPLETE. PT IS SEDATED ON THE VENT. PERRLA, 3 MM, BRISK REACTION TO LIGHT, YELLOW SCLERA EDEMA NOTED. NGT R NARE, POLY. ETT SIZE 7.0, MEASURING 20 CM AT THE LIP. VENT SETTINGS: A/C RATE OF 18, TIDAL VOLUME 500, FIO2 40%, PEEP 5.0, O2 SAT 98%. R IJ CVL INFUSING BICARB @ 150 ML/HR, PROPOFOL @ 45 MCG/KG/MIN (30.5 ML/HR), LR @ KVO, FENTANYL @ 25 MCG/HR (0.5 ML/HR). MIDLINE ABD INCISION DRESSING CDI, EUGENE LLQ DRAINING BLOODY DRAINAGE. ABD ROUND AND SOFT, HYPOACTIVE BS X4. PHILLIPS CATH DRAINING OTONIEL URINE. L RADIAL A-LINE ZEROED, 125/78. CVP ZEROED, 10. GENERALIZED EDEMA NOTED. RADIAL AND PEDAL PULSES PALP. HEEL PROTECTORS ON. SCDS ON AND FUNCTIONING. B/L WRIST RESTRAINTS REMOVED AND SKIN ASSESSED, WNL, PLACED RESTRAINTS BACK ON PT. ALL NEEDS MET. NO FURTHER FINDINGS AT THIS TIME. VSS. WILL CONT CLOSE MONITORING IN ICU.
--- NOTE | 2018-09-20 21:00 | NUR ---
NO FAMILY DURING VISITATION. REPOSITIONED FOR COMFORT. ORAL CARE PROVIDED. VSS. NO CHANGES IN PT CONDITION. WILL CONT TO MONITOR CLOSELY.
--- NOTE | 2018-09-20 22:10 | NUR ---
LEFT A-LINE IS SHOWING BAD WAVE FORM. FLUSHED, REPOSITIONED, STILL SHOWING BAD WAVE FROM. CHARGE NURSE AT BEDSIDE. UNABLE TO GET A-LINE TO SHOW PROPER WAVE FORM. NIBP PLACED ON PT AND READING 132/89. WILL CONT CLOSE MONITORING.
--- NOTE | 2018-09-20 22:20 | NUR ---
PROPOFOL TUBING CHANGED, DATED, LABELED, SWAB CAPPED.
--- NOTE | 2018-09-20 23:00 | NUR ---
REASSESSMENT COMPLETE. NO CHANGES FROM PREVIOUS ASSESSMENT, SEE FLOWSHEET FOR FURTHER DETIALS. VSS. ORAL CARE PROVIDED. REPOSITIONED FOR COMFORT. WILL CONT WITH POC.
[2018-09-20 23:56] LABS: HEMATOCRIT 24.7 % (36.0-48.0); HEMOGLOBIN 9.2 g/dL (12-16)
--- NOTE | 2018-09-20 23:58 | NUR ---
H&H REVIEWED, NO BLOOD NEEDED. WILL CONT TO MONITOR.
[2018-09-21] VITALS (23 sets, daily range): BP systolic 89–136; BP diastolic 61–96
--- NOTE | 2018-09-21 01:00 | NUR ---
ORAL CARE PROVIDED. VSS. REPOSITIONED FOR COMFORT. NO CHANGES IN PT CONDITION. WILL CONT WITH POC.
--- NOTE | 2018-09-21 01:55 | NUR ---
PT'S HR DROPPED TO 55, SINUS SRIDHAR SHOWING ON MONITOR. NIBP 132/86. DECREASED PROPOFOL PER TITRATION ORDERS. WILL CONT TO MONITOR. SEE IV FLOWSHEET FOR FURTHER DETAILS.
--- NOTE | 2018-09-21 03:00 | NUR ---
REASSESSMENT COMPLETE. PT'S HR IS LOW 60'S. CONT TO TITRATE PROPOFOL NEEDED/ORDERED. CRACKLES HEARD BILAT THROUGHOUT ALL LOBES. NO FURTHER FINDINGS AT THIS TIME. WILL CONT WITH POC.
--- NOTE | 2018-09-21 05:00 | NUR ---
ALL IV TUBING LINES CHANGED, SWAB CAPPED AND LABELED. REPOSITIONED FOR COMFORT. VSS. ORAL CARE PROVIDED. WILL CONT WITH POC.
[2018-09-21 05:42] LABS: HEMATOCRIT 25.7 % (36.0-48.0); HEMOGLOBIN 8.9 g/dL (12-16); MCH 29.5 pg (26.0-34.0); MCHC 34.6 g/dL (31.0-37.0); MCV 85.1 fL (80.0-100.0); MEAN PLATELET VOLUME 11.6 fL (7.4-10.4); PLATELET COUNT 61 10x3/uL (130-400); RBC 3.02 10x6/uL (4.00-5.40); RDW 15.3 % (11.5-14.5); WBC 25.7 10x3/uL (4.8-10.8)
[2018-09-21 05:44] LABS: ANION GAP 10.3 mmol/L (8-16); BILIRUBIN - TOTAL 4.56 mg/dL (0.2-1.3); CARBON DIOXIDE 33.1 mmol/L (21.0-32.0); CREATININE - SERUM 1.3 mg/dL (0.6-1.3); MAGNESIUM - SERUM 1.3 mg/dL (1.8-2.4); PHOSPHOROUS 2.2 mg/dL (2.5-4.9); POTASSIUM - SERUM 3.4 mmol/L (3.5-5.1); PROTEIN - SERUM 4.8 g/dL (6.4-8.2)
--- NOTE | 2018-09-21 06:09 | NUR ---
RT AT BEDSIDE PROVIDING ORAL CARE. NO FURTHER NEEDS AT THIS TIME.
[2018-09-21 06:17] LABS: INR 1.09 (0.85-1.17); PROTIME 13.6 SECONDS (11.6-15.0)
--- NOTE | 2018-09-21 07:15 | NUR ---
REPORT RECEIVED. ASSESSMENT COMPLETE PER FLOW SHEET. VSS. NO NEW CHANGES PT RESTING COMFORTABLY WILL CONTINUE TO MONITOR
[2018-09-21 08:29] LABS: LYMPHOCYTES 5 % (15-50); MONOCYTES 15 % (2-11); NEUTROPHILS 74 % (40-80); PLATELET ESTIMATE DECREASED
[2018-09-21 08:30] LABS: SMUDGE CELLS OCC
--- NOTE | 2018-09-21 08:30 | NUR ---
DR WEST AT BEDSIDE NEW ORDERS RECIVED WILL ADM
--- NOTE | 2018-09-21 08:45 | NUR ---
DR YUAN AT BEDSIDE NEW ORDERS RECEIVED
--- NOTE | 2018-09-21 09:15 | NUR ---
PROPOFOL OFF AT THIS TIME PER ORDER. PT ON CPAP TRIAL WILL CONTINUE TO MONITOR NURSE AT BEDSIDE
--- NOTE | 2018-09-21 09:15 | NUR ---
DR JIN AT BEDSIDE GIVEN UPDATE
--- NOTE | 2018-09-21 09:25 | NUR ---
Nutrition follow-up: Pt intubated, sedated post emergent left nephrectomy CPAP trials today with possible extubation today or tomorrow NPO Labs reviewed Wt: 278# If unable to extubate, recommend starting Pulmocare @ 25 ml/hr with increase to goal rate of 60 ml/hr. RDN following.
--- NOTE | 2018-09-21 09:30 | NUR ---
PRISCILLA LEE WITH DR DUNN AT BEDSIDE UPDATE GIVEN NEW ORDERS RECEIVED
--- NOTE | 2018-09-21 10:45 | NUR ---
DR YUAN PAGED GIVENUPDATE PT ANXIOUS AGGITATED ATTEMPT TO SELF EXTUBATED T ORDER TO EXTUBATE AT THIS TIME TO BIPAP. RESPIRATORY NOTIFIED
--- NOTE | 2018-09-21 11:00 | NUR ---
FENTANYL DPP TURNED OFF AND D.C'D AT THIS TIME PER ORDER
--- NOTE | 2018-09-21 11:05 | NUR ---
PT EXTUBATED WITHOUT DIFFICULTY AT THIS TIME. WILL CONTINUE TO MONITOR
--- NOTE | 2018-09-21 11:30 | NUR ---
DR BRETT WASHINGTOND. AWAITING CALL BACK
--- NOTE | 2018-09-21 11:30 | NUR ---
REASSESSMENT COMPLETE PER FLOW SHEET.V SS. REFER FOR FINDINGS. PT RSTING COMFORTABLY WILL CONTINUE TO MONITOR
--- NOTE | 2018-09-21 11:54 | NUR ---
FENTANYL DPP TURNED OFF AND D.C'D PER ORDER
--- NOTE | 2018-09-21 12:10 | NUR ---
FAMILY AT BEDSIDE GIVEN UPDATE
--- NOTE | 2018-09-21 14:25 | NUR ---
PT SLEEPING COMFORTABLY VSS NO NEW CHANGES WILL CONTNIUE TO MONITOR
--- NOTE | 2018-09-21 14:30 | NUR ---
DR DUNN AT BEDSIDE UPDATE GIVEN NO NEW ORDERS
--- NOTE | 2018-09-21 15:15 | NUR ---
REASSESSMENT COMPLETE PER FLOW SHEET. VSS. NO NEW CHANGES WILL CONTINUE TOMONITOR
[2018-09-21 15:29] LABS: CALCIUM 7.1 mg/dL (8.5-10.1); CARBON DIOXIDE 36.3 mmol/L (21.0-32.0); CREATININE - SERUM 1.2 mg/dL (0.6-1.3); POTASSIUM - SERUM 3.3 mmol/L (3.5-5.1)
--- NOTE | 2018-09-21 16:10 | NUR ---
PT UP TO SIDE OF BED COUGH DEEP BREATHE ADM. NEEDS MET
--- NOTE | 2018-09-21 17:11 | NUR ---
DR WEST AT BEDSIDE GIVEN UPDATE
--- NOTE | 2018-09-21 19:00 | NUR ---
REPORT RECEIVED, CARE ASSUMED. PT IS LAYING IN BED WITH EYES OPEN AT THIS TIME. PT DENIES NEEDS CURRENTLY. INITIAL ASSESSMENT COMPLETED, SEE FLOWSHEET FOR DETAILS. HELPED PT REPOSITION IN BED FOR COMFORT. NO SIGNS OF ACUTE DISTRESS. WILL CONTINUE TO MONITOR.
--- NOTE | 2018-09-21 21:00 | NUR ---
PT IS RESTING IN BED WITH EYES CLOSED AT THIS TIME. PT DENIES NEEDS. HELPED PT TO REPOSITION IN BED. NO SIGNS OF ACUTE DISTRESS NOTED AT THIS TIME. WILL CONTINUE TO MONITOR.
--- NOTE | 2018-09-21 22:39 | NUR ---
PT PUT ON BIPAP 16/ 40% AT THIS TIME
--- NOTE | 2018-09-21 23:00 | NUR ---
REASSESSMENT COMPLETED, SEE FLOWSHEET FOR DETAILS. PT IS LAYING IN BED AT THIS TIME. PT UNABLE TO KEEP BIPAP ON DUE TO NG TUBE AND AIR CONSTANTLY LEAKING FROM AROUND IT. PLACED PT ON 2LNC AT THIS TIME TO MAINTAIN O2 SAT WHILE SLEEPING. CONTINOUS PLUSE OX MONITORING IN PLACE. NO SIGNS OF ACUTE DISTRESS NOTED AT THIS TIME. WILL CONTINUE TO MONITOR CLOSELY.
[2018-09-22] VITALS (23 sets, daily range): BP systolic 109–146; BP diastolic 72–98
--- NOTE | 2018-09-22 01:00 | NUR ---
PT IS LAYING IN BED WITH EYES CLOSED AT THIS TIME. PT DENIES NEEDS AT THIS TIME. HELPED PT REPOSITION IN BED. NO SIGNS OF ACUTE DISTRESS NOTED AT THIS TIME. WILL CONTINUE TO MONITOR.
--- NOTE | 2018-09-22 03:00 | NUR ---
REASSESSMENT COMPLETED, SEE FLOWSHEET FOR DETAILS. PT IS LAYING IN BED WITH EYES CLOSED AT THIS TIME. NO SIGNS OF ACUTE DISTRESS. WILL CONTINUE TO MONITOR.
[2018-09-22 04:21] LABS: BASOPHILS 0 % (0-2); EOSINOPHILS 0.1 % (0-7); HEMATOCRIT 26.9 % (36.0-48.0); HEMOGLOBIN 9.1 g/dL (12-16); IMMATURE GRANULOCYTES 1.4 % (0-5); LYMPHOCYTES 8.5 % (15-50); MCH 29.7 pg (26.0-34.0); MCHC 33.8 g/dL (31.0-37.0); MCV 87.9 fL (80.0-100.0); MEAN PLATELET VOLUME 11.5 fL (7.4-10.4); MONOCYTES 5.6 % (2-11); NEUTROPHILS 84.4 % (40-80); PLATELET COUNT 58 10x3/uL (130-400); RBC 3.06 10x6/uL (4.00-5.40); RDW 15.1 % (11.5-14.5); WBC 24.1 10x3/uL (4.8-10.8)
[2018-09-22 04:34] LABS: ANION GAP 6.9 mmol/L (8-16); BILIRUBIN - TOTAL 2.82 mg/dL (0.2-1.3); CALCIUM 7.1 mg/dL (8.5-10.1); CARBON DIOXIDE 34.7 mmol/L (21.0-32.0); CREATININE - SERUM 1.2 mg/dL (0.6-1.3); POTASSIUM - SERUM 3.6 mmol/L (3.5-5.1)
--- NOTE | 2018-09-22 05:00 | NUR ---
PT IS LAYING IN BED WITH EYES CLOSED AT THIS TIME. NO SIGNS OF ACUTE DISTRESS. WILL CONTINUE TO MONITOR.
--- NOTE | 2018-09-22 07:15 | NUR ---
REPORT RECEIVED. ASSESSMENT COMPLETE PER FLOW SHEET. VSS. NO NEW CHANGES PT RESTING COMFORTABLY WILL CONTINUE TO MONITOR
[2018-09-22 08:27] LABS: PHOSPHOROUS 2.9 mg/dL (2.5-4.9)
--- NOTE | 2018-09-22 09:08 | NUR ---
Nutrition follow-up: Pt extubated NPO until BM NGT -> LIWS Labs reviewed RDN following.
--- NOTE | 2018-09-22 09:10 | NUR ---
ASSISTED OOB TO CHAIR
--- NOTE | 2018-09-22 09:40 | EC ---
PATIENT:JESSICA OWENS DATE OF SERVICE: 09/18/18 SEX: F MEDICAL RECORD: [id number] DATE OF : [birth year] LOCATION:[facility] D.230 AGE OF PATIENT: 38 ADMISSION DATE: 09/18/18 REFERRING PHYSICIAN: INTERPRETING PHYSICIAN: TRAVON DIEGO MD ECHOCARDIOGRAM REPORT ECHO CHARGES 4 ECHO COMPLETE Date: 09/19/18 CLINICAL DIAGNOSIS: HYPOTENSION/SEPTIC SHOCK ECHOCARDIOGRAPHIC MEASUREMENTS (adult normal given) AC root (d.<3.7cm) 2.7 cm LV Septum d (<1.2 cm> 0.9 cm Valve Excursion 1.1 cm LV Septum (systole) 1.1 cm Left Atria (s.<4.0cm> cm LVPW d(<1.2cm) 1.3 cm RV (d.<2.3cm) 2.2 cm LVPW (sytole) 1.7 cm LV diastole(<5.6CM) 2.6 cm MV E-F(>70mm/sec) cm LV systole 1.7 cm LVOT Diameter 1.6 cm MV exc.(>10mm) 1.6 cm Est.ejection fraction (50-75%) % DOPPLER: LVIT cm/sec A 31.0 cm/sec E 77.0 cm/sec LA cm/sec RVSP 43 mmHg LVOT 190 cm/sec AOP1/2T m/s Asc. Ao 232 cm/sec RVOT 88 cm/sec RA cm/sec PA 115 cm/sec AV Gradient Peak 21.52mmHg AV Mean 12.45mmHg AV Area 1.7 cm MV Gradient Peak 3.29 mmHg MV Mean 0.84 mmHg MV Area cm COMMENTS: Chief Client Officer: Allan FERNANDEZ Worm Sorter: 1 Dr. Diego TAPE# PACS Pericardial Effusion N DATE OF SERVICE: 09/19/2018 FINDINGS: 1. Left ventricular chamber size is within normal limits. Left ventricular systolic function is normal. Overall ejection fraction is estimated at 60%. 2. Left atrium, right atrium, and right ventricular chamber sizes are within normal limit. 3. Valvular structures have normal structure and motion. 4. Doppler interrogation reveals no significant valvular insufficiency or stenosis. ECHOCARDIOGRAM REPORT [id number] JESSICA OWENS 5. No evidence of pericardial effusion or left ventricular thrombus. TRANSINT:[id number] Voice Confirmation ID: [id number] DOCUMENT ID: [id number] TRAVON DIEGO MD at 0940 CC: [id number] DICTATION DATE: 09/19/18 1631 WHITE SHOE RAGGER: 09/19/18 1726 ADM IN [facility] [address] [id number]
--- NOTE | 2018-09-22 10:10 | NUR ---
DR WEST AT BEDSIDE
--- NOTE | 2018-09-22 11:00 | NUR ---
REASSESSMENT COMPLETE PER FLOW SHEET. VSS. NO NEW CHANGES PT RESTING COMFORTABLY WILL CONTINUE TO MONITOR
--- NOTE | 2018-09-22 13:00 | NUR ---
DR YUAN AT BEDSIDE
--- NOTE | 2018-09-22 14:09 | NUR ---
DR NGO AT BEDSIDE
--- NOTE | 2018-09-22 15:00 | NUR ---
REASSESSMENT COMPLETE PER FLOW SHEET VSS NO NEW CHANGES PT RESTING COMFORTABLY WILL CONTINUE TO MONTIOR
--- NOTE | 2018-09-22 16:09 | NUR ---
COMPLETE BB LINEN CHANGE ADM. CHG ADM ASSISTED BACK TO BED WITHOUT DIFFICULTY
[2018-09-22 17:22] LABS: ANION GAP 8.3 mmol/L (8-16); CALCIUM 7.4 mg/dL (8.5-10.1); CARBON DIOXIDE 29.2 mmol/L (21.0-32.0); POTASSIUM - SERUM 3.5 mmol/L (3.5-5.1)
--- NOTE | 2018-09-22 17:40 | NUR ---
DR DUNN AT BEDSIDE. GIVEN UDPATE
--- NOTE | 2018-09-22 19:20 | NUR ---
REPORT RECEIVED INITIAL ASSESSMENT COMPLETED. PT UP TO BSC READY TO GET BACK TO BED. PT TRANSFERS WITH MINIMAL ASSIST DOES NEED HELP WITH MOVING UP IN BED ASSISTED WITH CLEANING AFTER USING COMMODE. ORIENTED X4. C/O SEVERE PAIN AFTER GETTING TO BED PT SMASH FIXER MORPHINE HAD BEEN D/C TODAY WAS GIVEN TRAMADOL COUPLE HOURS AGO DID NOT RELIEVE PAIN. CM READING SB RATE OF 52 MDS AWARE OF LOW HEART RATE. CM ALARMS ON AND AUDIBLE. RESP EVEN NONLABORED BREATH SOUNDS WITH FAINT CRACKLES DIMINISHED BASILAR. O2 SAT 97% ON ROOM AIR AT THIS TIME. ABD ROUND BS HYPO PT STATES SHE HAS BEEN PASSING GAS. SKIN W/D PPP GENERALIZED EDEMA. EUGENE DRAIN TO ABD WITH SEROSANG DRAINAGE. STAPLE LINE CLEAN INTACT NO REDNESS OR DRAINAGE NOTED. BED LOW CALL LIGHT IN REACH. INFORMED PT WILL PAGE ABOUT PAIN MANAGEMENT PRN MEDS. SHE VERBALIZES UNDERSTANDING.
--- NOTE | 2018-09-22 19:33 | NUR ---
KATHLEEN SINGERN ANSWERED INFORMED OF PT PAIN NOT RELIEVED WITH EARLIER PO TRAMADOL ORDER AND THAT AFTER PT BEING UP AND CONTINUING TO GET UP TO BSC C/O MODERATE TO SEVERE PAIN GIVEN PRN MORPHINE IVP.
--- NOTE | 2018-09-22 19:48 | NUR ---
MEDICATED WITH MORPHINE 2MG SIVP PER PRN ORDER
--- NOTE | 2018-09-22 19:55 | MORECARE ---
CASE MANAGEMENT DISCHARGE SUMMARY PATIENT: JESSICA OWENS UNIT: [id number] ADM DATE: 09/18/18 AGE: 38 : [birth year] SEX: F ROOM/BED: D.2303 AUTHOR: MIGUEL ELENA PHYSICIAN: REFERRING PHYSICIAN: ADEBAYO JIN DO DATE OF SERVICE: 09/22/18 Discharge Plan Patient Name: JESSICA OWENS Facility: [facility]:[place] : 1980 Planned Disposition: Home Anticipated Discharge Date: Discharge Date: Expected LOS: Initial Reviewer: [email or web address] Initial Review Date: 09/22/2018 Generated: 09/22/18 8:55 pm DCP- Discharge Planning Updated by [email or web address]: Lana Andujar on 09/19/18 4:[address] Patient is very critical at this time awaiting surgery. No immediate family here. CM will try at a later date to get D/C plan. DCPIA - Discharge Planning Initial Assessment Updated by [email or web address]: Lana Andujar on 09/22/18 7:54 pm * Is the patient Alert and Oriented? Yes * How many steps to enter\exit or inside your home? * PCP [facility] * [facility] * Preadmission Environment Home with Family * ADLs Independent * Equipment None * List name and contact numbers for known caregivers / representatives who currently or will assist patient after discharge: NETO PENA [facility] [phone] * Verbal permission to speak to the caregivers and representatives has been obtained from the patient. N/A * Community resources currently utilized None * Additional services required to return to the preadmission environment? No * Can the patient safely return to the preadmission environment? Yes * Has this patient been hospitalized within the prior 30 days at any hospital? No Last DP export: 09/19/18 4:15 p Patient Name: JESSICA OWENS Page [id number] at 1955 All edits/amendments must be made on the electronic document DICTATION DATE: 09/22/181954 FLEXOGRAPHIC PRESS OPERATOR: SUNIL 09/22/181954 RPT#: [id number] DC DATE: STATUS: ADM IN [facility] [address] [place] [address] END OF REPORT
--- NOTE | 2018-09-22 20:04 | MORECARE ---
CASE MANAGEMENT DISCHARGE SUMMARY PATIENT: JESSICA OWENS UNIT: [id number] ADM DATE: 09/18/18 AGE: 38 : [birth year] SEX: F ROOM/BED: D.2303 AUTHOR: KASSY,DOC PHYSICIAN: REFERRING PHYSICIAN: ADEBAYO JIN DO DATE OF SERVICE: 09/22/18 Discharge Plan Patient Name: JESSICA OWENS Facility: [facility]:[place] : 1980 Planned Disposition: Home Anticipated Discharge Date: Discharge Date: Expected LOS: Initial Reviewer: [email or web address] Initial Review Date: 09/22/2018 Generated: 09/22/18 9:03 pm Comments DCP- Discharge Planning Updated by [email or web address]: Lana Andujar on 09/22/18 6:[address] Patient Name: JESSICA OWENS Admission Status: ER Accout number: [id number] Admission Date: 09-18-2018 : 1980 Admission Diagnosis:GRAM-NEGATIVE SEPSIS, UNSPECIFIED Attending: ADEBAYO JIN Current LOS: 4 Anticipated DC Date: Planned Disposition: Home Primary [place]: [place] [employer] Discharge Planning Comments: CM met with patient at bedside after explaining CM role and obtaining verbal consent. Patient lives at home with her children and plans to return there upon discharge. Patient feels this would be a safe discharge. CM discussed availability / needs of home health and medical equipment. Patient denies any discharge needs at this time. Patient states she will have family drive her home upon discharge. CM will continue to follow and assist as needed with discharge planning / needs. Document Specialist: Lana Andujar DCP- Discharge Planning Updated by [email or web address]: Lana Andujar on 09/19/18 4:[address] Patient is very critical at this time awaiting surgery. No immediate family here. CM will try at a later date to get D/C plan. DCPIA - Discharge Planning Initial Assessment Updated by [email or web address]: Lana Andujar on 09/22/18 7:54 pm * Is the patient Alert and Oriented? Yes * How many steps to enter\exit or inside your home? * PCP [facility] * [facility] * Preadmission Environment Home with Family * ADLs Independent * Equipment None * List name and contact numbers for known caregivers / representatives who currently or will assist patient after discharge: NETO PENA - MOTHER - [phone] * Verbal permission to speak to the caregivers and representatives has been obtained from the patient. N/A * Community resources currently utilized None * Additional services required to return to the preadmission environment? No * Can the patient safely return to the preadmission environment? Yes * Has this patient been hospitalized within the prior 30 days at any hospital? No Last DP export: 09/22/18 6:55 p Patient Name: JESSICA OWENS Page [id number] at 2005 All edits/amendments must be made on the electronic document DICTATION DATE: 09/22/182002 SHOT GRINDER OPERATOR: SUNIL 09/22/182002 RPT#: [id number] DC DATE: STATUS: ADM IN [facility] [address] [place] [address] END OF REPORT
--- NOTE | 2018-09-22 21:00 | NUR ---
ANSWERED PTS CALL LIGHT SHE IS REQUESTING UP TO BSC MINIMAL ASSIST TO BSC URINATES WITHOUT DIFFICULTY ATTEMPT TO COMB HAIR UNSUCCESSFUL DUE TO TANGLES. CONDITIONER AND SHOWER CAP APPLIED WILL ATTEMPT AGAIN LATER.
--- NOTE | 2018-09-22 23:00 | NUR ---
REASSESSMENT MADE NO CHANGES PT RESTED WELL AFTER EARLIER DOSE OF MORPHINE. EUGENE DRAIN EMPTIED COUPLE TIMES AND COMPRESSED DRESSING D/I. CALL LIGHT IN REACH
[2018-09-23] VITALS (11 sets, daily range): BP systolic 108–147; BP diastolic 80–93
--- NOTE | 2018-09-23 00:49 | NUR ---
ANSWERED PTS CALL LIGHT REQUESTING TO GET UP TO BSC ASSISTED MINIMALLY UP TO BSC ABLE TO URINATE DARK YELLOW URINE ASSISTED BACK TO BED MEDICATED WITH MORPHINE FOR PAIN 10 ON 1-10 SCALE.
--- NOTE | 2018-09-23 02:00 | NUR ---
PT RESTING QUIETLY WITH EYES CLOSED VSS CPOC WILL CONTINUE TO MONITOR
--- NOTE | 2018-09-23 03:00 | NUR ---
REASSESSMENT COMPLETE NO CHANGES VSS AT THIS TIME. REPOSITIONED FOR COMFORT. CPOC. CALL LIGHT IN REACH
[2018-09-23 06:52] LABS: HEMATOCRIT 29.4 % (36.0-48.0); HEMOGLOBIN 9.8 g/dL (12-16); MCH 29.4 pg (26.0-34.0); MCHC 33.3 g/dL (31.0-37.0); MCV 88.3 fL (80.0-100.0); MEAN PLATELET VOLUME 12.2 fL (7.4-10.4); RBC 3.33 10x6/uL (4.00-5.40); RDW 14.7 % (11.5-14.5); WBC 18.2 10x3/uL (4.8-10.8)
[2018-09-23 06:55] LABS: PLATELET COUNT 89 10x3/uL (130-400)
[2018-09-23 07:11] LABS: ALBUMIN 2.1 g/dL (3.4-5.0); ANION GAP 12.1 mmol/L (8-16); BILIRUBIN - TOTAL 2.75 mg/dL (0.2-1.3); CALCIUM 7.5 mg/dL (8.5-10.1); CARBON DIOXIDE 24.4 mmol/L (21.0-32.0); CREATININE - SERUM 0.9 mg/dL (0.6-1.3); POTASSIUM - SERUM 3.5 mmol/L (3.5-5.1); PROTEIN - SERUM 5.3 g/dL (6.4-8.2)
[2018-09-23 07:35] LABS: EOSINOPHILS 1 % (0-7); LYMPHOCYTES 9 % (15-50); MONOCYTES 12 % (2-11); NEUTROPHILS 67 % (40-80); PLATELET ESTIMATE DECREASED
--- NOTE | 2018-09-23 08:04 | NUR ---
PER DR WEST, [facility] LIQUID DIET, KEEP IJ CVL IN FOR ONE MORE DAY, TRANSFER TO FLOOR.
--- NOTE | 2018-09-23 08:27 | NUR ---
UP IN BED AWAKE AT THIS TIME. NO ACUTE DISTRESS NOTED. ASSISTED TO TOILET VIA MINIMAL ASSIST. CALL LIGHT IN REACH. WILL CONTINUE PLAN OF CARE.
--- NOTE | 2018-09-23 09:45 | NUR ---
CONTINENT VOID NOTED AT THIS TIME. ASSISTED TO TOILET VIA MINIMAL ASSIST. NO ACUTE DISTRESS NOTED. PT UP IN BED AWAKE. VSS. WILL CONTINUE PLAN OF CARE.
--- NOTE | 2018-09-23 10:13 | NUR ---
CHG BATH OFFERED TO PT, SHE STATED SHE WANTED TO WAIT UNTIL LATER.
--- NOTE | 2018-09-23 10:40 | NUR ---
ATTEMPTED TO FLUSH RT AC PERIPHERAL IV, NOTED NO LONGER PATENT, IV DC, CATHETER TIP INTACT. NO ACUTE DISTRESS NOTED. WILL CONTINUE PLAN OF CARE.
--- NOTE | 2018-09-23 12:04 | NUR ---
UP IN BED EATING LUNCH AT THIS TIME. PT ON CLR LIQUID DIET PER SURGEON. NO ACUTE DISTRESS NOTED. VSS. WILL CONTINUE PLAN OF CARE.
--- NOTE | 2018-09-23 14:04 | NUR ---
LYING IN BED RESTING AT THIS TIME. NO ACUTE DISTRESS NOTED. RESPIRATIONS STEADY AND UNLABORED. PT AWAKENS WHEN SPOKEN TO. VSS. WILL CONTINUE PLAN OF CARE.
--- NOTE | 2018-09-23 15:01 | NUR ---
CHG BATH GIVEN AT THIS TIME.
--- NOTE | 2018-09-23 15:10 | NUR ---
NOTED PT TO GO TO ROOM 2229, REPORT CALLED TO RECIEVING NURSE. WILL TRANSFER PT SHORTLY.
--- NOTE | 2018-09-23 15:55 | NUR ---
TRANSFERRED TO ROOM 2229 AT THIS TIME VIA WHEELCHAIR, TRANSFERRED WITH ALL PERSONAL ITEMS WITH NURSING STAFF. PT STATES SHE WILL NOTIFY HER FAMILY OF HER TRANSFER. ALSO BEFORE TRANSFER CVL TO RT IJ DRESSING CHANGED PER HOSPITAL PROTOCOL, OLD DRESSING NO LONGER ADHERED TO SKIN THEREFORE NEEDED TO BE CHANGED. NO ACUTE DISTRESS NOTED. VSS. NO FURTHER ACTIONS.
--- NOTE | 2018-09-23 19:00 | NUR ---
REPORT RECEIVED AND CARE OF PT ASSUMED. PT LYING IN LOW DING'S POSITION WATCHING TV. RIGHT IJ CENTRAL LINE PATENT WITH D5NS W/ 20 KCL INFUSING AT 75 ML / HR. MIDLINE INCISION WELL APPROXIMATED WITH AIDEN. WILL MONITOR FOR NEEDS.
--- NOTE | 2018-09-23 19:45 | NUR ---
ASSISTED PT UP TO USE RESTROOM. WILL CONTINUE TO MONITOR FOR NEEDS.
--- NOTE | 2018-09-23 21:45 | NUR ---
HS MEDICATIONS GIVEN TO INCLUDE TRAMADOL PO FOR PAIN. WILL CONTINUE TO MONITOR FOR NEEDS.
[2018-09-24] VITALS: BP 150/76
[2018-09-24 04:00] VITALS: BP 148/71
[2018-09-24 08:49] VITALS: BP 120/82
--- NOTE | 2018-09-24 09:00 | NUR ---
ALERT AND ORIENTEDX3. AIDEN INTACT TO MIDLINE OF ABDOMEN. BS HYPOACTIVE X4 WITH FLATULANCE. EUGENE DRAIN WITH BLOODY DRAINAGE NOTED. MS GIVEN PRN. SCD INTACT. IV TO RT. IJ WITH IVF INFUSING AT PRESCRIBED RATE. ENCOURAGED TO USE CALL LIGHT FOR ASSIST.
[2018-09-24 09:01] LABS: BASOPHILS 0.2 % (0-2); EOSINOPHILS 0.7 % (0-7); HEMATOCRIT 30.9 % (36.0-48.0); HEMOGLOBIN 10.7 g/dL (12-16); LYMPHOCYTES 9.1 % (15-50); MCH 29.8 pg (26.0-34.0); MCHC 34.6 g/dL (31.0-37.0); MONOCYTES 10.6 % (2-11); NEUTROPHILS 58.4 % (40-80); RBC 3.59 10x6/uL (4.00-5.40); RDW 14.2 % (11.5-14.5); WBC 14.9 10x3/uL (4.8-10.8)
[2018-09-24 09:04] LABS: MCV 86.1 fL (80.0-100.0); PLATELET COUNT 122 10x3/uL (130-400)
[2018-09-24 09:10] LABS: CALC OSMOLALITY 271 mosm/kg (275-300); CALCIUM 7.6 mg/dL (8.5-10.1); CARBON DIOXIDE 22.7 mmol/L (21.0-32.0); CHLORIDE - SERUM 104 mmol/L (98-107); CREATININE - SERUM 0.7 mg/dL (0.6-1.3); GLUCOSE 116 mg/dL (74-106); POTASSIUM - SERUM 3.5 mmol/L (3.5-5.1); SODIUM 135 mmol/L (136-145); UREA NITROGEN 15 mg/dL (7-18); eGFR NON AFRICAN AMERICAN > 90 mL/min (90-120)
[2018-09-24 12:39] VITALS: BP 142/76
[2018-09-24 17:55] VITALS: BP 131/90
--- NOTE | 2018-09-24 19:00 | NUR ---
REPORT RECEIVED AND CARE OF PT ASSUMED. PT LYING IN SUPINE POSITION WITH EYES CLOSED. RIGHT IJ PATENT WITH D5NR W/ 20 KCL INFUSING AT 75 ML / HR. EUGENE DRAIN WELL COMPRESSED WITH BLOODY DRAINAGE IN BULB. WILL MONITOR FOR NEEDS.
[2018-09-24 20:00] VITALS: BP 143/71
--- NOTE | 2018-09-24 20:40 | NUR ---
HS MEDICATIONS GIVEN TO INCLUDE TRAMADOL PO FOR PAIN. WILL MONITOR FOR NEEDS.
--- NOTE | 2018-09-24 21:30 | NUR ---
ASSISTED PT UP TO RESTROOM. EMPTIED EUGENE DRAIN AND DOCUMENTED OUTPUT. WILL CONTINUE TO MONTITOR FOR NEEDS.
--- NOTE | 2018-09-24 21:33 | NUR ---
GAVE MORPHINE 2 MG IVP FOR C/O PAIN. WILL CONTINUE TO MONITOR FOR NEEDS.
--- NOTE | 2018-09-24 21:40 | NUR ---
CHANGED BEDPAD AND GOWN.
[2018-09-25] VITALS: BP 118/53
[2018-09-25 04:00] VITALS: BP 120/60
[2018-09-25 05:52] LABS: CALC OSMOLALITY 272 mosm/kg (275-300); CALCIUM 7.4 mg/dL (8.5-10.1); CARBON DIOXIDE 22.4 mmol/L (21.0-32.0); CHLORIDE - SERUM 104 mmol/L (98-107); CREATININE - SERUM 0.7 mg/dL (0.6-1.3); GLUCOSE 113 mg/dL (74-106); POTASSIUM - SERUM 3.8 mmol/L (3.5-5.1); SODIUM 136 mmol/L (136-145); UREA NITROGEN 13 mg/dL (7-18); eGFR NON AFRICAN AMERICAN > 90 mL/min (90-120)
[2018-09-25 06:19] LABS: HEMATOCRIT 28.6 % (36.0-48.0); HEMOGLOBIN 9.9 g/dL (12-16); MCH 29.7 pg (26.0-34.0); MCHC 34.6 g/dL (31.0-37.0); MCV 85.9 fL (80.0-100.0); MEAN PLATELET VOLUME 10.7 fL (7.4-10.4); RBC 3.33 10x6/uL (4.00-5.40); RDW 14.3 % (11.5-14.5); WBC 13.3 10x3/uL (4.8-10.8)
[2018-09-25 06:23] LABS: PLATELET COUNT 154 10x3/uL (130-400)
[2018-09-25 08:16] VITALS: BP 130/76
[2018-09-25 08:37] LABS: BASOPHILS 1 % (0-2); EOSINOPHILS 3 % (0-7); LYMPHOCYTES 11 % (15-50); MONOCYTES 14 % (2-11); NEUTROPHILS 55 % (40-80)
[2018-09-25 08:38] LABS: ANISOCYTOSIS 1+; PLATELET ESTIMATE NORMAL; POLYCHROMASIA OCC; SMUDGE CELLS OCC
[2018-09-25 09:31] LABS: PATH REVIEW PERIPHERAL SMEAR REVIEWED
[2018-09-25 12:18] VITALS: BP 122/62
--- NOTE | 2018-09-25 15:35 | NUR ---
CVL TO RIGHT NECK DISCONTINUED PER MD ORDERS. PRESSURE HELD NO BLEEDING OR DRAINAIGE NOTED. STERILE DRESSING APPLIED TO AREA. EUGENE DRAIN REMOVED FROM LEFT LOWER QUAD. DRESSING APPLIED. SCANT AMOUNT OF SEROSANGOUENOUS DRAINAGE NOTED.
[2018-09-25 15:53] VITALS: BP 131/71
[2018-09-25 20:00] VITALS: BP 117/61
[2018-09-26 06:33] VITALS: BP 116/70
[2018-09-26 06:50] LABS: BASOPHILS 0.2 % (0-2); HEMATOCRIT 29.2 % (36.0-48.0); IMMATURE GRANULOCYTES 13.7 % (0-5); LYMPHOCYTES 11.2 % (15-50); MCH 29.6 pg (26.0-34.0); MCHC 34.2 g/dL (31.0-37.0); MCV 86.4 fL (80.0-100.0); MEAN PLATELET VOLUME 10.9 fL (7.4-10.4); MONOCYTES 9.9 % (2-11); RBC 3.38 10x6/uL (4.00-5.40); RDW 14.7 % (11.5-14.5)
[2018-09-26 07:02] LABS: CALC OSMOLALITY 269 mosm/kg (275-300); CALCIUM 7.8 mg/dL (8.5-10.1); CARBON DIOXIDE 23.3 mmol/L (21.0-32.0); CHLORIDE - SERUM 103 mmol/L (98-107); CREATININE - SERUM 0.8 mg/dL (0.6-1.3); GLUCOSE 117 mg/dL (74-106); POTASSIUM - SERUM 3.8 mmol/L (3.5-5.1); SODIUM 135 mmol/L (136-145); UREA NITROGEN 11 mg/dL (7-18); eGFR NON AFRICAN AMERICAN 85 mL/min (90-120)
[2018-09-26 07:06] LABS: PLATELET COUNT 187 10x3/uL (130-400)
--- NOTE | 2018-09-26 07:35 | NUR ---
PT RESTING IN BED, AWAKE AND ALERT. NO ACUTE DISTRESS NOTED AT THIS TIME. REPORTS PAIN 8/10 AT THIS TIME. PAIN MEDICATION TO BE ADMINISTERED PER MD ORDERS. MIDLINE INCISION WITH AIDEN INTACT. NO REDNESS SWELLING OR DRAINAGE. OLD EUGENE DRAIN SITE TO LEFT UPPER QUAD WITH DRESSING INTACT. SCANT AMOUNT OF SEROSANGEOUNOUS DRAINAGE NOTED. DENIES FURTHER NEEDS AT THIS TIME. CL WITHIN REACH. ENCOURAGED TO CALL WITH NEEDS. CONTINUE POC
[2018-09-26] MEDS ORDERED: LEVOFLOXACIN500 MG PO (08:09)
[2018-09-26] MEDS ORDERED: OXYCODONE HCL5 M1 PO (08:09)
[2018-09-26 08:14] VITALS: BP 116/77
[2018-09-26] MEDS ORDERED: VALTREX500 MG PO (10:39)
[2018-09-26] MEDS ORDERED: GABAPENTIN100 MG PO (10:39)
[2018-09-26] MEDS ORDERED: MIRALAX17 GM PO (10:39)
[2018-09-26 11:46] VITALS: BP 114/69
--- NOTE | 2018-09-26 12:40 | MORECARE ---
CASE MANAGEMENT DISCHARGE SUMMARY PATIENT: JESSICA OWENS UNIT: [id number] ADM DATE: 09/18/18 AGE: 38 : 78 SEX: F ROOM/BED: D.2229 AUTHOR: KASSY,DOC PHYSICIAN: REFERRING PHYSICIAN: ADEBAYO JIN DO DATE OF SERVICE: 09/26/18 Discharge Plan Patient Name: JESSICA OWENS Facility: [facility]:[place] : 1980 Planned Disposition: Home Anticipated Discharge Date: 09/26/18 Discharge Date: Expected LOS: 8 Initial Reviewer: [email or web address] Initial Review Date: 09/22/2018 Generated: 09/26/18 1:40 pm DCP- Discharge Planning Updated by [email or web address]: Lana Andujar on 09/22/18 6:[address] Patient Name: JESSIAC OWENS Admission Status: ER Accout number: [id number] Admission Date: 09-18-2018 : 1980 Admission Diagnosis:GRAM-NEGATIVE SEPSIS, UNSPECIFIED Attending: ADEBAYO JIN Current LOS: 4 Anticipated DC Date: Planned Disposition: Home Primary [place]: [place] [employer] [place] Discharge Planning Comments: CM met with patient at bedside after explaining CM role and obtaining verbal consent. Patient lives at home with her children and plans to return there upon discharge. Patient feels this would be a safe discharge. CM discussed availability / needs of home health and medical equipment. Patient denies any discharge needs at this time. Patient states she will have family drive her home upon discharge. CM will continue to follow and assist as needed with discharge planning / needs. Air Traffic Control Supervisor: Lana Andujar DCP- Discharge Planning Updated by [id number]: Lana Andujra on 09/19/18 4:[address] Patient is very critical at this time awaiting surgery. No immediate family here. CM will try at a later date to get D/C plan. DCPIA - Discharge Planning Initial Assessment Updated by [email or web address]: Lana Andujar on 09/22/18 7:54 pm * Is the patient Alert and Oriented? Yes * How many steps to enter\exit or inside your home? * PCP [facility] * [facility] * Preadmission Environment Home with Family * ADLs Independent * Equipment None * List name and contact numbers for known caregivers / representatives who currently or will assist patient after discharge: NETO PENA - MOTHER - [phone] * Verbal permission to speak to the caregivers and representatives has been obtained from the patient. N/A * Community resources currently utilized None * Additional services required to return to the preadmission environment? No * Can the patient safely return to the preadmission environment? Yes * Has this patient been hospitalized within the prior 30 days at any hospital? No Last DP export: 09/22/18 7:04 p Patient Name: JESSICA OWENS Page [id number] at 1240 All edits/amendments must be made on the electronic document DICTATION DATE: 09/26/18 1239 VP STRATEGIC PLANNING: SUNIL 09/26/18 1239 RPT#: [id number] DC DATE: STATUS: ADM IN [facility] [address] [place] [address] END OF REPORT
--- NOTE | 2018-09-26 12:51 | MORECARE ---
CASE MANAGEMENT DISCHARGE SUMMARY PATIENT: JESSICA OWENS UNIT: [id number] ADM DATE: 09/18/18 AGE: 38 : 78 SEX: F ROOM/BED: D.2229 AUTHOR: KASSY,MIGUEL PHYSICIAN: REFERRING PHYSICIAN: ADEBAYO JIN DO DATE OF SERVICE: 09/26/18 Discharge Plan Patient Name: JESSICA OWENS Facility: [facility]:[place] : 1980 Planned Disposition: Home Anticipated Discharge Date: 09/26/18 Discharge Date: Expected LOS: 8 Initial Reviewer: [email or web address] Initial Review Date: 09/22/2018 Generated: 09/26/18 1:50 pm Comments DCP- Discharge Planning Updated by [email or web address]: Sita Garza on 09/26/18 11:[address] PATIENT WILL BE AT [address] [place] [address]. CORRECTED ADDRESS WAS ON FAXED REFERRAL SHEET. DCP- Discharge Planning Updated by [email or web address]: Sita Garza on 09/26/18 11:[address] CONSENT SIGNED AT 1230 09/26/18 FOR [facility]. DCP- Discharge Planning Updated by [email or web address]: Sita Garza on 09/26/18 11:[address] CM REVISITED W/ THE PATIENT. DISCUSSED HOME HEALTH PATIENT HAS D/C WITH HOME HEALTH ORDERS. SHE WILL ACCEPTED. DISCUSSED PROVIDERS. THE PATIENT IS FAMILIAR WITH [facility] THEREFORE CONSENT SIGNED FOR [facility]. TC TO [facility]. THEY ARE CONTRACTED W/ PATIENT'S INSURER. THE PATIENT WILL BE SEEN ON TUESDAY. CONSENT OBTAINED. COPY TO THE PATIENT AND COPY TO THE HARD COVER CHART. FAXED REFERRAL. PATIENT'S DAUGHTER IS AT THE BEDSIDE. SHE WILL PROVIDE TRANSPORTATION. DCP- Discharge Planning Updated by [email or web address]: Lana Andujar on 09/22/18 6:[address] Patient Name: JESSICA OWENS Admission Status: ER Accout number: [id number] Admission Date: 09-18-2018 : 1980 Admission Diagnosis:GRAM-NEGATIVE SEPSIS, UNSPECIFIED Attending: ADEBAYO JIN Current LOS: 4 Anticipated DC Date: Planned Disposition: Home Primary Insurance: [place] [employer] [place] Discharge Planning Comments: CM met with patient at bedside after explaining CM role and obtaining verbal consent. Patient lives at home with her children and plans to return there upon discharge. Patient feels this would be a safe discharge. CM discussed availability / needs of home health and medical equipment. Patient denies any discharge needs at this time. Patient states she will have family drive her home upon discharge. CM will continue to follow and assist as needed with discharge planning / needs. Glove Wrapper: Lana Andujar DCP- Discharge Planning Updated by [email or web address]: Lana Andujar on 09/19/18 4:[address] Patient is very critical at this time awaiting surgery. No immediate family here. CM will try at a later date to get D/C plan. DCPIA - Discharge Planning Initial Assessment Updated by [email or web address]: Lana Andujar on 09/22/18 7:54 pm * Is the patient Alert and Oriented? Yes * How many steps to enter\exit or inside your home? * PCP [facility] * [facility] * Preadmission Environment Home with Family * ADLs Independent * Equipment None * List name and contact numbers for known caregivers / representatives who currently or will assist patient after discharge: NETO PENA - [facility] - [phone] * Verbal permission to speak to the caregivers and representatives has been obtained from the patient. N/A * Community resources currently utilized None * Additional services required to return to the preadmission environment? No * Can the patient safely return to the preadmission environment? Yes * Has this patient been hospitalized within the prior 30 days at any hospital? No Last DP export: 09/26/18 11:40 a Patient Name: JESSICA OWENS Page 14874 at 1251 All edits/amendments must be made on the electronic document DICTATION DATE: 09/26/181249 HIGHWALL DRILL OPERATOR: SUNIL 09/26/18 125 RPT#: [id number] DC DATE: STATUS: ADM IN [facility] [address] [place] [address] END OF REPORT
--- NOTE | 2018-09-26 13:15 | NUR ---
PT DISCHARGE PAPERWORK PROVIDED FOR DISCHARGE. DISCUSSED WOUND CARE, S/S OF INFECTIONS, THINGS TO MONITOR FOR AND REPORT TO MDS. MEDICATIONS DISCUSSED WELL FOLLOW UP APPOINTMENTS. PT DENIES QUESTIONS AT THIS TIME. AWAITING TRANSPORTATION HOME
--- NOTE | 2018-09-28 17:15 | MORECARE ---
CASE MANAGEMENT DISCHARGE SUMMARY PATIENT: JESSICA OWENS UNIT: [id number] ADM DATE: 09/18/18 AGE: 38 : 78 SEX: F ROOM/BED: D.2229 AUTHOR: KASSY,DOC PHYSICIAN: REFERRING PHYSICIAN: ADEBAYO JIN DO DATE OF SERVICE: 09/28/18 Discharge Plan Patient Name: JESSICA OWENS Facility: [facility]:[place] : 1980 Planned Disposition: Home Anticipated Discharge Date: 09/26/18 Discharge Date: 09/26/2018 Expected LOS: 8 Initial Reviewer: [email or web address] Initial Review Date: 09/22/2018 Generated: 09/28/18 6:15 pm Comments DCP- Discharge Planning Updated by [email or web address]: Sita Garza on 09/26/18 11:[address] PATIENT WILL BE AT [address] [place] [address]. CORRECTED ADDRESS WAS ON FAXED REFERRAL SHEET. DCP- Discharge Planning Updated by [email or web address]: Sita Garza on 09/26/18 11:[address] CONSENT SIGNED AT 1230 09/26/18 FOR [facility]. DCP- Discharge Planning Updated by [email or web address]: Sita Garza on 09/26/18 11:[address] CM REVISITED W/ THE PATIENT. DISCUSSED HOME HEALTH PATIENT HAS D/C WITH HOME HEALTH ORDERS. SHE WILL ACCEPTED. DISCUSSED PROVIDERS. THE PATIENT IS FAMILIAR WITH [facility] THEREFORE CONSENT SIGNED FOR [facility]. TC TO [facility]. THEY ARE CONTRACTED W/ PATIENT'S INSURER. THE PATIENT WILL BE SEEN ON TUESDAY. CONSENT OBTAINED. COPY TO THE PATIENT AND COPY TO THE HARD COVER CHART. FAXED REFERRAL. PATIENT'S DAUGHTER IS AT THE BEDSIDE. SHE WILL PROVIDE TRANSPORTATION. DCP- Discharge Planning Updated by [email or web address]: Lana Andujar on 09/22/18 6:[address] Patient Name: JESSICA OWENS Admission Status: ER Accout number: [id number] Admission Date: 09-18-2018 : 1980 Admission Diagnosis:GRAM-NEGATIVE SEPSIS, UNSPECIFIED Attending: ADEBAYO JIN Current LOS: 4 Anticipated DC Date: Planned Disposition: Home Primary Insurance: [place] [employer] [place] Discharge Planning Comments: CM met with patient at bedside after explaining CM role and obtaining verbal consent. Patient lives at home with her children and plans to return there upon discharge. Patient feels this would be a safe discharge. CM discussed availability / needs of home health and medical equipment. Patient denies any discharge needs at this time. Patient states she will have family drive her home upon discharge. CM will continue to follow and assist as needed with discharge planning / needs. Superintendent Construction: Lana Andujar DCP- Discharge Planning Updated by [email or web address]: Lana Andujar on 09/19/18 4:[address] Patient is very critical at this time awaiting surgery. No immediate family here. CM will try at a later date to get D/C plan. DCPIA - Discharge Planning Initial Assessment Updated by [email or web address]: Lana Andujar on 09/22/18 7:54 pm * Is the patient Alert and Oriented? Yes * How many steps to enter\exit or inside your home? * PCP [facility] * [facility] * Preadmission Environment Home with Family * ADLs Independent * Equipment None * List name and contact numbers for known caregivers / representatives who currently or will assist patient after discharge: NETO EPNA - [facility] - [phone] * Verbal permission to speak to the caregivers and representatives has been obtained from the patient. N/A * Community resources currently utilized None * Additional services required to return to the preadmission environment? No * Can the patient safely return to the preadmission environment? Yes * Has this patient been hospitalized within the prior 30 days at any hospital? No Last DP export: 09/26/18 11:51 a Patient Name: JESSICA OWENS Page 10592 at 7759 All edits/amendments must be made on the electronic document DICTATION DATE: 09/28/181714 LABOR AND EMPLOYMENT PARALEGAL: SUNIL 09/28/181714 RPT#: [id number] DC DATE:09/26/18 STATUS: DIS IN [facility] [address] [place] [address] END OF REPORT
== END 2018-09-26 15:10 | disposition home health service (06) | DRG 853 ==
LOC: D.ER 12:12 → D.ICU 16:32 → D.MS 16:32 → D.ICU 18:32 → D.MS 09-23 15:57
PROVIDERS: Emergency Medicine; Internal Medicine; Internal Medicine Pulmonary Disease; Surgery; Urology; ADMIT Family Medicine; ATTEND Family Medicine
PROC: 0T778DZ Dilation of Left Ureter with Intraluminal Device, Via Natural or Artificial Opening Endoscopic (ICD-10-PCS; principal; 2018-09-18 19:32)
PROC: 0WCG0ZZ Extirpation of Matter from Peritoneal Cavity, Open Approach (ICD-10-PCS; 2018-09-19)
PROC: 5A1935Z Respiratory Ventilation, Less than 24 Consecutive Hours (ICD-10-PCS; 2018-09-19)
PROC: 0BH17EZ Insertion of Endotracheal Airway into Trachea, Via Natural or Artificial Opening (ICD-10-PCS; 2018-09-19)
PROC: 0W3G0ZZ Control Bleeding in Peritoneal Cavity, Open Approach (ICD-10-PCS; 2018-09-19)
PROC: 03HY32Z Insertion of Monitoring Device into Upper Artery, Percutaneous Approach (ICD-10-PCS; 2018-09-19)
PROC: 0TT10ZZ Resection of Left Kidney, Open Approach (ICD-10-PCS; 2018-09-19 17:16)
DX: A41.50 Gram-negative sepsis, unspecified (principal); R65.21 Severe sepsis with septic shock; K66.1 Hemoperitoneum; R57.1 Hypovolemic shock; J96.00 Acute respiratory failure, unspecified whether with hypoxia or hypercapnia; N10 Acute pyelonephritis; E87.2 Acidosis; D62 Acute posthemorrhagic anemia; N17.9 Acute kidney failure, unspecified; N39.0 Urinary tract infection, site not specified; N94.89 Other specified conditions associated with female genital organs and menstrual cycle; E87.6 Hypokalemia; I95.9 Hypotension, unspecified; R11.2 Nausea with vomiting, unspecified; R00.0 Tachycardia, unspecified; E83.51 Hypocalcemia; B02.9 Zoster without complications

== ENCOUNTER → 2018-10-10 15:16 | Outpatient (CLI) | payer MEDICAID ==
[2018-09-19 15:05] VITALS: BMI 33.2
[~2018-10-10 15:16] MED LIST: CYCLOBENZAPRINE10 MG PO; GABAPENTIN100 MG PO; LEVOFLOXACIN500 MG PO; MIRALAX17 GM PO; OXYCODONE HCL5 M1 PO; ROBAXIN500 MG PO; VALTREX500 MG PO
[2018-10-10 17:27] LABS: BASOPHILS 0.3 % (0-2); EOSINOPHILS 0.9 % (0-7); HEMATOCRIT 36.9 % (36.0-48.0); HEMOGLOBIN 12.6 g/dL (12-16); LYMPHOCYTES 24.6 % (15-50); MCH 30.4 pg (26.0-34.0); MCHC 34.1 g/dL (31.0-37.0); MCV 89.1 fL (80.0-100.0); MEAN PLATELET VOLUME 9.4 fL (7.4-10.4); MONOCYTES 9.8 % (2-11); NEUTROPHILS 63.4 % (40-80); RBC 4.14 10x6/uL (4.00-5.40); WBC 7.7 10x3/uL (4.8-10.8)
[2018-10-10 17:32] LABS: PLATELET COUNT 412 10x3/uL (130-400)
[2018-10-10 17:41] LABS: CALCIUM 9.1 mg/dL (8.5-10.1); CARBON DIOXIDE 30.2 mmol/L (21.0-32.0); CREATININE - SERUM 1.1 mg/dL (0.6-1.3); POTASSIUM - SERUM 4.2 mmol/L (3.5-5.1)
== END | disposition home or self-care (01) ==
LOC: D.US 15:00
PROVIDERS: ATTEND Nurse Practitioner Family
DX: R10.9 Unspecified abdominal pain (principal)

== ENCOUNTER → 2018-11-16 09:04 | Outpatient (CLI) | payer MEDICAID ==
[2018-09-19 15:05] VITALS: BMI 33.2
== END | disposition home or self-care (01) ==
LOC: D.US 11-15 09:00
PROVIDERS: ATTEND Surgery
DX: R10.11 Right upper quadrant pain (principal)